=== PATIENT | male | born 1990 | race Caucasian/White ===

== ENCOUNTER 2020-09-04 09:36 | Emergency (ER) | payer OTHER, SELFPAY ==
--- NOTE | ~2020-09-04 | CT_ITS ---
EXAMINATION: CT abdomen pelvis w con EXAM DATE: 09/04/2020 11:27 INDICATION: Lower abdominal pain, nausea, dysuria. TECHNIQUE: Spiral CT of the abdomen and pelvis was performed following intravenous injection of 100 m L Omnipaque 350. Axial, coronal and sagittal images of the abdomen and pelvis were reviewed. The do se-length product (DLP) for this examination was 358.13 mGy-cm. The exposure was tailored according to patient size (auto mA exposure control), and iterative reconstruction (ASIR) was used as additiona l dose reduction technique. There is no prior study for comparison. FINDINGS: The bladder measures 11 x 10 x 16 cm, severely distended. If patient has voiding issue, pot entially could be neurogenic bladder. Prostate is normal in size making elbow obstruction unlikely. N o hydroureter. The liver, spleen, adrenal glands and pancreas are unremarkable. Gallbladder is unrem arkable. No biliary obstruction. Portal and splenic veins are patent. Kidneys enhance symmetricall y. There is no hydronephrosis. There is no retroperitoneal or pelvic lymphadenopathy. The appendix is normal. The stomach and small bowel are unremarkable. There is moderate amount of c olonic stool. No free intraperitoneal gas. The heart is normal in size. There are no pericardial or pleural effusions. The lung bases are unremarkable. The bones are unremarkable. IMPRESSION: 1. Severely distended bladder, clinical correlation. If indicated, pre and post void pelvic sonogra m. 2. Moderate amount of colonic stool. Reviewed, dictated and finalized at location A. IMPRESSION: 1. Severely distended bladder, clinical correlation. If indicated, pre and po st void pelvic sonogram. 2. Moderate amount of colonic stool.
[2020-09-04 09:39] VITALS: BP 143/100; PULSE 118; RESP 20; TEMP 36.6; O2SAT 100
[2020-09-04 10:55] LABS: Basophils Percent Auto 0.4 % (0.2-1.2); Eosinophils Absolute Auto 0.1 K/mm3 (0-0.3); Hematocrit 40.5 % (42.0-52.0); Hemoglobin 13.5 g/dL (14.0-18.0); Immature Granulocyte Absolute 0.03 K/mm3 (0.00-0.031); Immature Granulocyte Percent A 0.4 % (0-0.5); Lymphocytes Absolute Auto 1.37 K/mm3 (0.9-3.2); Lymphocytes Percent Auto 16.4 % (18.3-44.2); Mean Corpuscular HGB Conc 33.3 g/dl (32-36); Mean Corpuscular Hemoglobin 31.3 pg (26-34); Mean Platelet Volume 8.3 fl (7.4-10.4); Monocytes Absolute Auto 0.5 K/mm3 (0.1-0.6); Monocytes Percent Auto 5.9 % (2.6-8.5); Neutrophils Absolute Auto 6.4 K/mm3 (1.3-6.7); Neutrophils Percent Auto 75.9 % (45.5-73.1); Platelet Count Result 311 k/mm3 (150-375); Red Blood Count 4.31 M/mm3 (4.6-6.20); Red Cell Distribution Width 13.1 % (11.5-14.5); White Blood Count 8.4 K/mm3 (4.5-10.0)
[2020-09-04 11:08] LABS: Alanine Aminotransferase 43 U/L (4-50); Albumin Level 5.1 g/dL (3.5-5.1); Alkaline Phosphatase 84 U/L (38-126); Anion Gap 6 mmol/L (8-16); Aspartate Amino Transferase 43 U/L (17-59); Bilirubin,Total 0.3 mg/dL (0.2-1.3); Blood Urea Nitrogen 11 mg/dL (9-20); Calcium 9.7 mg/dL (8.4-10.2); Carbon Dioxide 34 mmol/L (22-30); Chloride 102 mmol/L (98-107); Estimated CRCL calculation 118 ml/min; Estimated Glomerular Filt Rate > 60; Glucose 99 mg/dL (75-110); Lipase 62 U/L (23-300); Potassium 4.2 mmol/L (3.4-5.0); Sodium 142 mmol/L (137-145)
--- NOTE | 2020-09-04 11:14 | ED.ABDPAIN ---
HPI - Abdominal Pain General Chief Complaint: Abdominal Pain Stated Complaint: constipation Time Seen by Provider: 09/04/20 10:53 Source: patient Mode of arrival: ambulatory Limitations: no limitations History of Present Illness HPI narrative: This is a 30 year old male that presents to the ER for left sided abdominal pain since last night. Associated with nausea and dysuria. Also reports constipation. Denies fever, vomiting, diarrhea, or hematuria. Related Data Home Medications Medication Instructions Recorded Confirmed alprazolam 0.25 mg PO BID PRN 09/04/20 09/04/20 Allergies Allergy/AdvReac Type Severity Reaction Status Date / Time Penicillins AdvReac Unknown Verified 09/04/20 10:41 Review of Systems Review of Systems: Narrative: CONSTITUTIONAL: Denies fever GASTROINTESTINAL: Reports abdominal pain, nausea. Denies vomiting, or diarrhea. GENITOURINARY: Reports dysuria. Denies hematuria. All systems reviewed & are unremarkable except as noted in HPI and below PMFSH Past Medical History Medical History (Updated 09/04/20 @ 15:11 by Chitra Serna PA-C) No active medical problems Social History Social History (Updated 09/04/20 @ 11:16 by Chitra Serna PA-C) Smoking status: Never smoker Substance use: never Exam Narrative: Exam Narrative: GENERAL: Well-appearing, well-nourished, and in mild acute distress due to pain. HEAD: Normocephalic, atraumatic. EYES: EOMI. CHEST: Clear to auscultation. No respiratory distress. No wheezes rales or rhonchi HEART: Regular rate and rhythm. No murmur heard. Normal peripheral pulses. ABDOMEN: Soft, nondistended, normal active bowel sounds. Tender to palpation throughout the lower abdomen. No CVA tenderness EXTREMITIES: Normal range of motion. No edema. SKIN: Warm, dry, no rash. NEURO: No focal deficits. Alert and oriented x3. PSYCH: Normal mood and affect RECTAL: Patient did not tolerate rectal exam very well, but there are no obvious hemorrhoids on exam or active bleeding Course Consultations Consultation #1: Spoke with urology about patient and work-up will follow-up in clinic. Date: 09/04/20 Time: 15:09 Vital Signs Vital signs: Vital Signs Temperature 97.9 F 09/04/20 09:39 Pulse Rate 118 H 09/04/20 09:39 Respiratory Rate 20 09/04/20 09:39 Blood Pressure 143/100 H 09/04/20 09:39 Pulse Oximetry 100 09/04/20 09:39 Temperature 97.9 F 09/04/20 09:39 Pulse Rate 78 09/04/20 14:36 Respiratory Rate 18 09/04/20 14:36 Blood Pressure 138/73 09/04/20 14:36 Pulse Oximetry 99 09/04/20 14:36 MDM - Abdominal Pain MDM Narrative Medical decision making narrative: Patient presents the emergency department for abdominal pain and constipation. Also noted while in the ED that patient was not able to urinate. He is afebrile and nontoxic-appearing. CBC is without leukocytosis. Does show normocytic anemia with hemoglobin of 13.5. Metabolic panel and lipase without concerning findings. UA is normal. CT scan of the abdomen and pelvis shows severely distended bladder. Also shows moderate amount of colonic stool. Otherwise no acute findings. Patient given MiraLAX and an enema. Has not had complete bowel movement yet in the ED. Instructed to continue MiraLAX and stool softeners at home. Enemas as needed. Patient did have a [place] catheter placed with 1400 mL of urine initially. Spoke with urology about patient and work-up will follow-up in clinic. Urinary retention likely due to constipation. Patient is stable and felt appropriate for further outpatient evaluation. He was given warnings to return to the ER Lab Data Attestation: I reviewed the patient's lab results. Result diagrams: 09/04/20 10:46 09/04/20 10:46 Labs: Lab Results 09/04/20 09/04/20 09/04/20 Range/Units 10:46 10:46 11:53 WBC 8.4 (4.5-10.0) K/mm3 RBC 4.31 L (4.6-6.20) M/mm3 Hgb 13.5 L (14.0-18.0) g/dL Hct 40.5 L (42
[2020-09-04] MEDS: MORPHINE SULFATE (*CRX) 4 MG/ML INJ IV PUSH (11:30)
[2020-09-04] MEDS: ONDANSETRON INJ 4 MG/2 ML VIAL IV PUSH (11:35)
[2020-09-04 12:04] LABS: Add Urine Microscopic? NO; Appearance Urine Clear (Clear); Bilirubin Urine Negative (Negative); Blood Urine Negative (Negative); Color Urine Straw (Yellow); Glucose Urine UA Negative (Negative); Ketones Urine Negative (Negative); Leukocyte Esterase Ur Negative LEU/UL (Negative); Nitrate Urine Negative (Negative); Protein Urine Negative (Negative); Specific Grav Ur 1.025 (1.001-1.035); Urobilinogen Urine Negative mg/dL (<2.0)
[2020-09-04] MEDS: polyethylene glycoL 3350 17 GM POWD.PACK PO (12:27)
[2020-09-04 14:36] VITALS: BP 138/73; PULSE 78; RESP 18; O2SAT 99
[2020-09-04 15:27] VITALS: BP 138/78; PULSE 78; RESP 18; O2SAT 99
== END 2020-09-04 15:28 | disposition home or self-care (01) ==
PROVIDERS: Physician Assistant; Emergency Provider Family Medicine
DX: K59.00 Constipation, unspecified (principal); R33.9 Retention of urine, unspecified
CPT/HCPCS: 36415; 74177; 80053; 81003; 83690; 85025; 96365; 96375; 99284; J0131; J2270; J2405; Q9967

== ENCOUNTER 2020-09-30 20:27 | Emergency (ER) | payer OTHER, SELFPAY ==
[2020-09-30 20:31] VITALS: BP 149/90; PULSE 149; RESP 14; TEMP 37.1; O2SAT 99
--- NOTE | 2020-09-30 20:59 | PC.NURSE ---
Charge nurse spoke with Ophelia @ poison control at this time. Per Poison Control peak time is 2-5 hours, 364mg is toxic dose, half life is 13-36 hours. Normal psychiatric protocol should be followed-ekg, uds, labs (etoh, tylenol, salicylates, thyroid). Per Poison control most symptoms should have been exhibited by 130pm. Poison Control will call back shortly.
--- NOTE | 2020-09-30 21:12 | ECG_ITS ---
Measurements Intervals [place] Rate: 124 P: 37 OK: 139 QRS: 3 QRSD: 90 T: 31 QT: 337 QTc: 484 Interpretive Statements SINUS TACHYCARDIA LOW QRS VOLTAGE IN PRECORDIAL LEADS BASELINE ARTIFACT- II, III, V3-V6 ABNORMAL ECG Electronically Signed On 10-01-2020 6:22:25 CDT by Jf Fletcher D.O.
[2020-09-30] MEDS: SODIUM CHLORIDE 0.9% IV 1,000 ML 999 ML IV CONT (21:31)
[2020-09-30 21:40] LABS: Lipase 167 U/L (23-300)
[2020-09-30 21:41] LABS: Acetaminophen < 10 ug/mL (10-30); Alanine Aminotransferase 26 U/L (4-50); Albumin Level 4.8 g/dL (3.5-5.1); Alkaline Phosphatase 71 U/L (38-126); Anion Gap 10 mmol/L (8-16); Aspartate Amino Transferase 30 U/L (17-59); Basophils Absolute Auto 0.1 K/mm3 (0.0-0.1); Basophils Percent Auto 0.6 % (0.2-1.2); Bilirubin,Total 0.3 mg/dL (0.2-1.3); Blood Urea Nitrogen 18 mg/dL (9-20); Calcium 9.6 mg/dL (8.4-10.2); Carbon Dioxide 26 mmol/L (22-30); Chloride 102 mmol/L (98-107); Eosinophils Absolute Auto 0.2 K/mm3 (0-0.3); Eosinophils Percent Auto 1.6 % (0-4.4); Estimated CRCL calculation 105 ml/min; Estimated Glomerular Filt Rate > 60; Ethanol < 10 mg/dL (<10); Glucose 88 mg/dL (75-110); Hematocrit 40.3 % (42.0-52.0); Immature Granulocyte Absolute 0.03 K/mm3 (0.00-0.031); Immature Granulocyte Percent A 0.3 % (0-0.5); Lymphocytes Absolute Auto 2.49 K/mm3 (0.9-3.2); Lymphocytes Percent Auto 26.9 % (18.3-44.2); Mean Corpuscular HGB Conc 34.7 g/dl (32-36); Mean Corpuscular Hemoglobin 31.9 pg (26-34); Mean Corpuscular Volume 91.8 fl (80-100); Mean Platelet Volume 8.5 fl (7.4-10.4); Monocytes Absolute Auto 0.7 K/mm3 (0.1-0.6); Neutrophils Absolute Auto 5.8 K/mm3 (1.3-6.7); Neutrophils Percent Auto 62.6 % (45.5-73.1); Platelet Count Result 283 k/mm3 (150-375); Potassium 3.7 mmol/L (3.4-5.0); Red Blood Count 4.39 M/mm3 (4.6-6.20); Salicylate 2.7 mg/dL (2-20); Sodium 138 mmol/L (137-145); White Blood Count 9.3 K/mm3 (4.5-10.0)
[2020-09-30 21:43] LABS: Add Urine Microscopic? NO; Appearance Urine Clear (Clear); Bilirubin Urine Negative (Negative); Blood Urine Negative (Negative); Color Urine Yellow (Yellow); Glucose Urine UA Negative (Negative); Ketones Urine Negative (Negative); Leukocyte Esterase Ur Negative LEU/UL (Negative); Nitrate Urine Negative (Negative); Protein Urine Negative (Negative); Specific Grav Ur 1.024 (1.001-1.035); Urobilinogen Urine Negative mg/dL (<2.0)
[2020-09-30 22:17] LABS: Amphetamine Screen Urine Negative (Negative); Barbiturate Screen Urine Negative (Negative); Benzodiazepines Screen Urine Positive (Negative); Cannabinoid Screen Urine Negative (Negative); Cocaine Screen Urine Negative (Negative); Methadone Screen Urine Negative (Negative); Opiate Screen Urine Negative (Negative); Phencyclidine Screen Urine Negative (Negative)
--- NOTE | 2020-09-30 23:06 | PC.NURSE ---
Per erp dr torres, pt is medically clear. RN may contact crisis.
[2020-09-30 23:07] VITALS: BP 134/83; PULSE 122; RESP 18; O2SAT 98
--- NOTE | 2020-09-30 23:09 | PC.NURSE ---
rn spoke with crisis, they will send someone out now.
--- NOTE | 2020-09-30 23:32 | PC.NURSE ---
[id number] case # [id number]
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
[2020-10-01] MEDS: SODIUM CHLORIDE 0.9% IV 1,000 ML 999 ML IV CONT (00:15)
[2020-10-01] MEDS: ACETAMINOPHEN 325 MG TABLET 650 MG PO (00:44)
[2020-10-01 01:20] VITALS: BP 136/82; PULSE 113; RESP 18; O2SAT 99
--- NOTE | 2020-10-01 01:56 | PC.NURSE ---
crisis remains @ bedside.
[2020-10-01 03:04] VITALS: BP 137/80; PULSE 91; RESP 18; O2SAT 99
[2020-10-03 13:38] LABS: SARS-CoV-2 RNA PCR Negative
== END 2020-10-01 03:52 | disposition home or self-care (01) ==
PROVIDERS: Emergency Medicine; Emergency Provider Emergency Medicine
DX: T43.012A Poisoning by tricyclic antidepressants, intentional self-harm, initial encounter (principal); F32.9 Major depressive disorder, single episode, unspecified; F41.9 Anxiety disorder, unspecified
CPT/HCPCS: 36415; 80053; 80307; 81003; 83690; 85025; 93005; 96360; 99284; A9270; C9803; J7030; U0003; U0005